=== PATIENT | female | born 1990 | race African-American/Black ===

== ENCOUNTER 2019-09-13 11:08 | Emergency (ER) | payer OTHER ==
[2019-09-13 11:22] VITALS: TEMP 98.1; BMI 27.4
--- NOTE | 2019-09-13 12:27 | PDOC ---
Documentation entered by Aurora Garcia SCRIBE, acting as scribe for Caio Ryan MD. Caio Ryan MD: This documentation has been prepared by the Jose contreras Ana, SCRIBE, under my direction and personally reviewed by me in its entirety. I confirm that the documentation accurately reflects all work, treatment, procedures, and medical decision making performed by me. Attending Attestation - Resident Resident Name: PughKarthikeyan - ED Attending Attestation I have performed the following: I have examined & evaluated the patient, The case was reviewed & discussed with the resident, I agree w/resident's findings & plan, Exceptions are as noted - HPI HPI: 09/13/19 11:37 Patient is a 29 year old 30 weeks female () with no significant past medical history who presents to the ED with increasing fatigue x7 days. Patient also endorses occasional palpitations and SOB when standing and upon exertion. Patient disclosed she has been experiencing these symptoms throughout her but that they have been getting worse. Pt denies any symptoms at rest. Denies any recent leg swelling or calf pain. Patient denies: any recent travel, long car rides, any headaches, dizziness, any vision changes, abdominal pain, back pain, or any other related symptoms. Allergies: NKDA PCP: Dr. Bernardo Montesinos - Physicial Exam PE: 09/13/19 11:53 See resident exam - Medical Decision Making 09/13/19 12:39 29 F with BEAULIEU and palpitations. Vitals normal in ED. EKG unremarkable. Pt is very well appearing. Suspect normal symptoms of . No evidence of DVT on exam. Low suspicion for PE. - Labs, trop, BNP - CXR - IVF 09/13/19 14:04 Labs wnl CXR clear POC cardiac US unremarkable Pt ambulated in ED, with normal sats. Pt is well appearing, with normal vitals. Clinically stable for DC at this time. I discussed the physical exam findings, ancillary test results and final diagnoses with the patient. I answered all of the patient's questions. The patient was satisfied with the care received and felt comfortable with the discharge plan and treatment plan. The patient agrees to follow up with the primary care physician within 24-72 hours. Please note this patient was evaluated during the COVID-19 crisis with the presidential Dunn Act Declaration and the [place] governor executive order number 202. He/she was evaluated and clinical decisions were made relative to healthcare system resources as well as clinical picture during a pandemic crisis situation. Discharge - Discharge Information Problems reviewed: Yes Clinical Impression/Diagnosis: Fatigue, Tachycardia with heart rate 100-120 beats per minute Condition: Stable Disposition: HOME - Follow up/Referral Referrals: [facility] [place] [facility] [place] [Provider Group] Bernardo Montesinos MD [Primary Care Provider] - - Patient Discharge Instructions Additional Instructions: Please make a follow up appointment with your primary care physician and your OB (referrals provided here). If you experience any new, worsening, or concerning symptoms, including chest pain, shortness of breath, dizziness, leg swelling, or any other concerns, please return to the emergency department. - Post Discharge Activity
--- NOTE | 2019-09-13 12:28 | PDOC ---
History of Present Illness - General Chief Complaint: Weakness Stated Complaint: 30 WK PREG / SOB Time Seen by Provider: 09/13/19 11:27 - History of Present Illness Initial Comments: Joseph Garcia is a 29 y/o female with no reported PMH @ 30 weeks presenting today with generalized weakness, shortness of breath, heart palpitations. Reports that over the past couple of weeks she has felt fatigue, generally weak, and short of breath, but this morning reports that her shortness of breath feels different. States that her shortness of breath is worse on exertion and when standing. No chest pain. No pleuritic chest pain. No dizziness/headache. No LOC. No nausea/vomiting. Reports abdominal cramping that is the same that has occurred throughout her . No leg swelling. No recent travel. No smoking history. No fever/chills. Past History - Medical History Allergies/Adverse Reactions: Allergies Allergy/AdvReac Type Severity Reaction Status Date / Time No Known Allergies Allergy Verified 09/13/19 11:14 Home Medications: Ambulatory Orders NK [No Known Home Medication] 09/13/19 COPD: No - Psycho-Social/Smoking History Smoking History: Never smoked Information on smoking cessation initiated: Yes - Substance Abuse Hx (Audit-C & DAST Scrn) How often the patient has a drink containing alcohol: Never Score: In Men: 4 or > Positive; In Women: 3 or > Positive: 0 Screen Result (Pos requires Nsg. Audit-10AR): Negative In the last yr the pt used illegal drug/Rx for NonMed reason: No Score: Yes response is considered Positive: 0 Screen Result (Positive result requires Nsg. DAST-10): Negative Review of Systems - Review of Systems Comments:: GENERAL/CONSTITUTIONAL: No fever or chills. Reports generalized weakness. HEAD, EYES, EARS, NOSE AND THROAT: No change in vision. No change in hearing. No sore throat._ CARDIOVASCULAR: No chest pain. Reports shortness of breath. RESPIRATORY: Denies cough, hemoptysis_ GASTROINTESTINAL: No nausea, vomiting, diarrhea or constipation._ GENITOURINARY: No dysuria, frequency, or change in urination._ MUSCULOSKELETAL: No joint or muscle swelling or pain. No neck or back pain._ SKIN: No rash_ NEUROLOGIC: No headache, vertigo, loss of consciousness, or change in strength/sensation._ ENDOCRINE: No increased thirst. No abnormal weight change_ HEMATOLOGIC/LYMPHATIC: No anemia, easy bleeding, or history of blood clots._ ALLERGIC/IMMUNOLOGIC: No hives or skin allergy._ *Physical Exam - Vital Signs Last Vital Signs Temp Pulse Resp BP Pulse Ox 98.1 F 105 H 19 102/67 99 09/13/19 11:12 09/13/19 11:12 09/13/19 11:12 09/13/19 11:12 09/13/19 11:12 - Physical Exam GENERAL: Awake, alert, and oriented to person/place/time, in no acute distress. Well appearing. HEAD: No signs of trauma, normocephalic, atraumatic. EYES: PERRLA, EOMI, sclera anicteric, conjunctiva clear_ ENT: Hearing grossly normal, nares patent, oropharynx clear without exudates. No uvular deviation. Moist mucosa_ NECK: Normal ROM, supple, no lymphadenopathy, JVD, or masses_ LUNGS: No distress, speaks in full sentences, clear to auscultation bilaterally _ HEART: Regular rate and rhythm, normal S1 and S2, no murmurs appreciated, peripheral pulses normal and equal bilaterally._ ABDOMEN: Soft, gravid, nontender, normoactive bowel sounds. No guarding, no rebound. No masses_ EXTREMITIES: Normal inspection, Normal range of motion, no edema. No clubbing or cyanosis_ NEUROLOGICAL: Cranial nerves II through XII grossly intact. Normal speech, normal gait, no focal sensorimotor deficits _ SKIN: Warm, Dry, normal turgor, no rashes or lesions noted_ ED Treatment Course - LABORATORY CBC & Chemistry Diagram: 09/13/19 12:36 09/13/19 12:36 Medical Decision Making - Medical Decision Making 29F @ 30 weeks presenting today with generalized fatigue, tachycardia, shortness of breath. No infections symptoms. No leg swelling. -labs -ekg -cxr -coags -BNP -pocus -ua, ucx 09/13/19 12:27 EKG shows 87 bpm, NSR, no axis deviation, UT 140, QTc 404, no ST elevation/depression. 09/13/19 14:04 POCUS echo shows no signs of pericardial effusion or cardiomyopathy. FHR 160s. CXR negative for acute chest pathology. Labs reviewed. Laboratory Last Values WBC 12.3 K/mm3 (4.0-10.0) H 09/13/19 12:36 RBC 4.10 M/mm3 (3.60-5.2) 09/13/19 12:36 Hgb 10.5 GM/dL (10.7-15.3) L 09/13/19 12:36 Hct 33.0 % (32.4-45.2) 09/13/19 12:36 MCV 80.4 fl (80-96) 09/13/19 12:36 MCH 25.7 pg (25.7-33.7) 09/13/19 12:36 MCHC 31.9 g/dl (32.0-36.0) L 09/13/19 12:36 RDW 14.2 % (11.6-15.6) 09/13/19 12:36 Plt Count 331 K/MM3 (134-434) 09/13/19 12:36 MPV 8.5 fl (7.5-11.1) 09/13/19 12:36 Absolute Neuts (auto) 9.8 K/mm3 (1.5-8.0) H 09/13/19 12:36 Neutrophils % 79.8 % (42.8-82.8) 09/13/19 12:36 Lymphocytes % 11.1 % (8-40) 09/13/19 12:36 Monocytes % 8.2 % (3.8-10.2) 09/13/19 12:36 Eosinophils % 0.5 % (0-4.5) 09/13/19 12:36 Basophils % 0.4 % (0-2.0) 09/13/19 12:36 Nucleated RBC % 0 % (0-0) 09/13/19 12:36 PT with INR 11.00 SEC (9.7-13.0) 09/13/19 12:36 INR 0.93 (0.83-1.09) 09/13/19 12:36 PTT (Actin FS) 25.8 SECONDS (25.2-36.5) 09/13/19 12:36 Sodium 137 mmol/L (136-145) 09/13/19 12:36 Potassium 4.0 mmol/L (3.5-5.1) 09/13/19 12:36 Chloride 106 mmol/L (98-107) 09/13/19 12:36 Carbon Dioxide 25 mmol/L (21-32) 09/13/19 12:36 Anion Gap 6 MMOL/L (8-16) L 09/13/19 12:36 BUN 7.5 mg/dL (7-18) 09/13/19 12:36 Creatinine 0.6 mg/dL (0.55-1.3) 09/13/19 12:36 Est GFR (CKD-EPI)AfAm 142.76 09/13/19 12:36 Est GFR (CKD-EPI)NonAf 123.17 09/13/19 12:36 POC Glucometer 96 UNITS (80-120) 09/13/19 12:43 Random Glucose 97 mg/dL (74-106) 09/13/19 12:36 Calcium 9.3 mg/dL (8.5-10.1) 09/13/19 12:36 Total Bilirubin 0.4 mg/dL (0.2-1) 09/13/19 12:36 AST 10 U/L (15-37) L 09/13/19 12:36 ALT 13 U/L (13-61) 09/13/19 12:36 Alkaline Phosphatase 151 U/L (45-117) H 09/13/19 12:36 Creatine Kinase 52 U/L (26-192) 09/13/19 12:36 Troponin I < 0.02 ng/ml (0.00-0.05) 09/13/19 12:36 B-Natriuretic Peptide 8.6 pg/ml (5-125) 09/13/19 12:36 Total Protein 7.1 g/dl (6.4-8.2) 09/13/19 12:36 Albumin 3.0 g/dl (3.4-5.0) L 09/13/19 12:36 Urine Color Yellow 09/13/19 13:25 Urine Appearance Clear 09/13/19 13:25 Urine pH 6.5 (5.0-8.0) 09/13/19 13:25 Ur Specific [place] 1.024 (1.010-1.035) 09/13/19 13:25 Urine Protein Trace (NEGATIVE) 09/13/19 13:25 Urine Glucose (UA) Negative (NEGATIVE) 09/13/19 13:25 Urine Ketones Trace (NEGATIVE) H 07/22/20 13:25 Urine Blood Negative (NEGATIVE) 09/13/19 13:25 Urine Nitrite Negative (NEGATIVE) 09/13/19 13:25 Urine Bilirubin Negative (NEGATIVE) 09/13/19 13:25 Urine Urobilinogen 1.0 mg/dL (0.2-1.0) 09/13/19 13:25 Ur Leukocyte Esterase Trace (NEGATIVE) 09/13/19 13:25 Urine WBC (Auto) 18 /uL (0-25.8) 09/13/19 13:25 Urine RBC (Auto) 14 /uL (0-23.9) 09/13/19 13:25 Urine Casts (Auto) 3 /uL (0-3.1) 09/13/19 13:25 U Epithel Cells (Auto) 22 /uL (0-25.1) 09/13/19 13:25 Urine Bacteria (Auto) 310 /uL (0-1359) 09/13/19 13:25 09/13/19 14:06 Pt reassessed. Reports improvement. Plan to d/c home with OB f/u. All questions answered. Return precautions given. Pt verbalized understanding and agreement with plan. Discharge - Discharge Information Problems reviewed: Yes Clinical Impression/Diagnosis: Fatigue, Tachycardia with heart rate 100-120 beats per minute Condition: Stable Disposition: HOME - Admission No - Follow up/Referral Referrals: [facility] [place] [facility] [place] [Provider Group] Bernardo Montesinos MD [Primary Care Provider] - - Patient Discharge Instructions Additional Instructions: Please make a follow up appointment with your primary care physician and your OB (referrals provided here). If you experience any new, worsening, or concerning symptoms, including chest pain, shortness of breath, dizziness, leg swelling, or any other concerns, please return to the emergency department. - Post Discharge Activity
[2019-09-13] MEDS ORDERED: SODIUM CHLORIDE 1,000 ML IV STA (12:43)
[2019-09-13 12:51] LABS: BASO % 0.4 % (0-2.0); EOS % 0.5 % (0-4.5); HEMOGLOBIN 10.5 GM/dL (10.7-15.3); LYMPH % 11.1 % (8-40); MCH 25.7 pg (25.7-33.7); MCHC 31.9 g/dl (32.0-36.0); MEAN CELL VOLUME 80.4 fl (80-96); MEAN PLT VOLUME 8.5 fl (7.5-11.1); MONO % 8.2 % (3.8-10.2); NEUT % 79.8 % (42.8-82.8); PLATELET COUNT 331 K/MM3 (134-434); RDW 14.2 % (11.6-15.6); WHITE BLOOD COUNT 12.3 K/mm3 (4.0-10.0)
[2019-09-13 12:58] LABS: INR 0.93 (0.83-1.09)
[2019-09-13 13:01] LABS: ACTIVATED PTT 25.8 SECONDS (25.2-36.5)
[2019-09-13] MEDS ORDERED: FAMOTIDINE 10 MG TABLET PO ONE (13:13)
[2019-09-13] MEDS ORDERED: MAG HYDROX/AL HYDROX/SIMETH -MYLANTA- ORAL SUSPENSION PO ONE (13:13)
[2019-09-13] MEDS ORDERED: FAMOTIDINE 10 MG TABLET ONE (13:16)
[2019-09-13] MEDS ORDERED: MAG HYDROX/AL HYDROX/SIMETH 30 ML UNIT-DOSE CUP ONE (13:17)
[2019-09-13 13:34] LABS: ALK PHOS 151 U/L (45-117); ANION GAP 6 MMOL/L (8-16); BILIRUBIN,TOTAL 0.4 mg/dL (0.2-1); BLOOD UREA NITROGEN 7.5 mg/dL (7-18); CALCIUM 9.3 mg/dL (8.5-10.1); CHLORIDE 106 mmol/L (98-107); CO2 25 mmol/L (21-32); CREATININE 0.6 mg/dL (0.55-1.3); GLUCOSE,RANDOM 97 mg/dL (74-106); N-TERMINAL BNP 8.6 pg/ml (5-125); SGOT/AST 10 U/L (15-37); SGPT/ALT 13 U/L (13-61); SODIUM 137 mmol/L (136-145); TOT PROT 7.1 g/dl (6.4-8.2)
[2019-09-13 13:35] LABS: EPI CELLS 22 /uL (0-25.1); HYALINE CASTS 3 /uL (0-3.1); PH,URINE 6.5 (5.0-8.0); URINE APPEARANCE CLEAR; URINE BACTERIA 310 /uL (0-1359); URINE BILIRUBIN NEGATIVE (NEGATIVE); URINE COLOR YELLOW; URINE GLUCOSE (UA) NEGATIVE (NEGATIVE); URINE KETONE TRACE (NEGATIVE); URINE LEUK ESTERASE TRACE (NEGATIVE); URINE NITRITE NEGATIVE (NEGATIVE); URINE PROTEIN TRACE (NEGATIVE); URINE RBC 14 /uL (0-23.9); URINE WBC 18 /uL (0-25.8)
[2019-09-13 14:33] VITALS: BP 120/74; PULSE 74
--- NOTE | 2019-09-14 12:11 | EKG ---
Test Reason : Blood Pressure : / mmHG Vent. Rate : 087 BPM Atrial Rate : 087 BPM P-R Int : 140 ms QRS Dur : 062 ms QT Int : 336 ms P-R-T Axes : 050 047 017 degrees QTc Int : 404 ms NORMAL SINUS RHYTHM NORMAL ECG NO PREVIOUS ECGS AVAILABLE Confirmed by JOZEF CASTILLO MD ([id number]) on 09/14/2019 12:10:56 PM Referred By: Confirmed By:JOZEF CASTILLO MD
== END 2019-09-13 14:33 | disposition home or self-care (01) ==
LOC: JER 11:08
PROC: 3E0337Z Introduction of Electrolytic and Water Balance Substance into Peripheral Vein, Percutaneous Approach (ICD-10-PCS; principal; 2019-09-13)
DX: R53.83 Other fatigue (principal); R00.0 Tachycardia, unspecified; Z3A.30 30 weeks gestation of pregnancy
CPT/HCPCS: 36415; 71045-TC-FY; 76815; 80053; 81003; 82550; 82962; 83880; 84484; 85025; 85610; 85730; 93005; 93010; 99285-25

== ENCOUNTER 2019-11-18 00:15 | Inpatient (IN) | payer OTHER ==
[2019-11-18] MEDS ORDERED: ELECTROLYTE-148 SOLN 1,000 ML IV SCH (03:00)
[2019-11-18] MEDS ORDERED: BUTORPHANOL TARTRATE 1 MG/ML VIAL IVPB ONE (03:03)
[2019-11-18] MEDS ORDERED: BUTORPHANOL TARTRATE 2 MG/ML VIAL IVPB ONE (03:03)
--- NOTE | 2019-11-18 03:03 | HP ---
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: Alzheimer's, CVA, Dementia, Migraine, Multiple Sclerosis, Peripheral Neuropathy, Parkinson's, Seizure, Syncope, TIA, Vertigo, Other Cardiovascular: No: AFIB, Aneurysm, Aortic Insufficiency, Aortic Stenosis, CAD, CHF, Deep Vein Thrombosis, HTN, Hyperlipdemia, CT, Mitral Insufficiency, Mitral Stenosis, Murmur, Pulmonary Hypertension, Other Pulmonary: No: Asthma, Bronchitis, Cancer, COPD, O2 Dependent, Pneumonia, Previously Intubated, Pulmonary Embolus, Pulmonary Fibrosis, Sleep Apnea, Other Gastrointestinal: No: Ascites, Cancer, Constipation, Crohn's Disease, Diverticulitis, Diverticulosis, Esophageal Varices, Gastritis, GERD, GI Bleed, Hemorrhoids, Hiatal Hernia, Inflamatory Bowel Disease, Irritable Bowel Disease, Pancreatitis, Peptic Ulcer Disease, Ulcerative Colitis, Other Hepatobiliary: No: Cirrhosis, Cholelithiasis, Cholecystitis, Choledocholithiasis, Hepatitis A, Hepatitis B, Hepatitis C, Other Renal/: No: Renal Failure, Renal Inusuff, BPH, Cancer, Hematuria, Hemodialysis, Neurogenic Bladder, Renal Calculi, UTI, Other Reproductive: No: Ectopic , Endometriosis, Fibroids, PID, Polycystic Ovary Syndrome, Postmenopausal, Other ...: 2 ...Para: 0 ...Term: 0 ...: 0 ...Spon : 0 ...Induced : 0 ...Living Children: 0 ...LMP: 02/09/19 ... Weeks Gestation by Dates: 40.1 ...EDC by Dates: 11/16/19 ...EDC by Sono: 11/10/19 Heme/Onc: No: Anemia, B12 Deficiency, Bleeding Disorder, Cancer, Current Chemotherapy, Current Radiation Therapy, Hemochromatosis, Hypercoaguable State, Myeloproliferative Synd, Sickle Cell Disease, Sickle Cell Trait, Thrombocytopenia, Other Infectious Disease: No: AIDS, C-Diff, Herpes Zoster, HIV, MRSA, STD's, Tuberculosis, VREF, Other Psych: No: Addictions, Anxiety, Bipolar, Depression, Panic, Psychosis, S chizophrenia, Other Musculoskeletal: No: Bursitis, Chronic low back pain, Hemiparesis, Hemiplegia, Osteoarthritis, Paraplegia, Other Rheumatology: No: Fibromyalgia, Gout, Lupus, Rheumatoid Arthritis, Sarcoidosis, Vasculitis, Other ENT: No: Allergic Rhinitis, Sinusitis, Other Endocrine: No: Garland's Disease, [place]'s Disease, Diabetes Insipidus, Diabetes Mellitus, Hyperparathyroidism, Hyperthyroidism, Hypothyroidism, Osteopenia, SIADH, Other Dermatology: No: Basal Cell, Cellulitis, Eczema, Melanoma, Psoriasis, Squamous Cell, Other - Past Surgical History Past Surgical History: Yes: None Hx Myomectomy: No Hx Transabdominal Cerclage: No - Smoking History Smoking history: Never smoked - Alcohol/Substance Use Hx Alcohol Use: No History of Substance Use: reports: None - Social History History of Recent Travel: No Home Medications - Allergies Allergies/Adverse Reactions: Allergies Allergy/AdvReac Type Severity Reaction Status Date / Time No Known Allergies Allergy Verified 09/13/19 11:14 - Home Medications Home Medications: Ambulatory Orders NK [No Known Home Medication] 09/13/19 Family Medical History Family History: Unremarkable Review of Systems - Review of Systems Constitutional: reports: No Symptoms Eyes: reports: No Symptoms HENT: reports: No Symptoms Neck: reports: No Symptoms Cardiovascular: reports: No Symptoms Respiratory: reports: No Symptoms Gastrointestinal: reports: No Symptoms Genitourinary: reports: No Symptoms Breasts: reports: No Symptoms Reported Musculoskeletal: reports: No Symptoms Integumentary: reports: No Symptoms Neurological: reports: No Symptoms Endocrine: reports: No Symptoms Hematology/Lymphatic: reports: No Symptoms Psychiatric: reports: No Symptoms Physical Exam - Maternity Vital Signs: Vital Signs Temperature 98.3 F 11/18/19 00:15 Pulse Rate 114 H 11/18/19 00:15 Respiratory Rate 18 11/18/19 00:15 Blood Pressure 101/67 11/18/19 00:15 O2 Sat by Pulse Oximetry (%) Constitutional: Yes: Well Nourished HENT: Yes: Nasal Congestion Neck: Yes: Supple Cardiovascular: Yes: Regular Rate and Rhythm Breast(s): Yes: Other - Abdominal Exam/OB Number of Fetuses: Single Presentation: Vertex Contractions: Yes Regularity: Regular Intensity: Moderate Monitor Mode: External Heart Rate (range): 145 Category: I Accelerations: Uniform Decelerations: None - Vaginal Exam/OB Vaginal Bleeding: No Speculum Exam: Yes (no lesions) Dilatation (cm): 4 Effacement (%): 60 Amniotic Membrane Status: Intact Presentation: Vertex/Position Station: -3 - Physical Exam Musculoskeletal: Yes: WNL Extremities: Yes: WNL Edema: Yes Edema: LLE: Trace, RLE: Trace Integumentary: Yes: WNL Deep Tendon Reflex Grade: Normal +2 ...Motor Strength: WNL Psychiatric: Yes: Alert, Oriented Imaging - Results Ultrasound: Report Reviewed Assessment/Plan 20 y/o P0 @ 40.2wks, active labor, FHT cat I, desiring IV pain control, EFW as of sono today 4Kg, HSV on valtrex and no prodromal symptoms and normal SSE. -admit -IV stadol -Expectant management
[2019-11-18 03:55] LABS: BASO % 0.5 % (0-2.0); EOS % 0.2 % (0-4.5); LYMPH % 9.9 % (8-40); MCH 25.3 pg (25.7-33.7); MCHC 32.3 g/dl (32.0-36.0); MEAN CELL VOLUME 78.4 fl (80-96); MEAN PLT VOLUME 9.2 fl (7.5-11.1); MONO % 6.4 % (3.8-10.2); PLATELET COUNT 274 K/MM3 (134-434); RBC 4.34 M/mm3 (3.60-5.2); WHITE BLOOD COUNT 11.6 K/mm3 (4.0-10.0)
[2019-11-18] MEDS ORDERED: BUTORPHANOL TARTRATE 2 MG/ML VIAL ONE (03:57)
[2019-11-18 04:01] LABS: INR 0.91 (0.83-1.09); PROTHROMBIN TIME (PATIENT) 10.7 SEC (9.7-13.0)
[2019-11-18 04:04] LABS: ACTIVATED PTT 26.4 SECONDS (25.2-36.5)
[2019-11-18 04:18] LABS: BLOOD UREA NITROGEN 8.9 mg/dL (7-18); CALCIUM 8.5 mg/dL (8.5-10.1); CREATININE 0.6 mg/dL (0.55-1.3)
[2019-11-18 04:29] LABS: POTASSIUM 6.4 mmol/L (3.5-5.1)
[2019-11-18 05:22] VITALS: BMI 29.3
--- NOTE | 2019-11-18 07:30 | PN ---
Ante-Partal Exam - Subjective Subjective: Patient would like epidural Vital Signs: Vital Signs Temperature 98.4 F 11/18/19 04:00 Pulse Rate 112 H 11/18/19 07:00 Respiratory Rate 20 11/18/19 07:00 Blood Pressure 118/72 11/18/19 07:00 O2 Sat by Pulse Oximetry (%) Bleeding: No Headache: No Visual changes: No Right upper quadrant pain: No - Contractions Contractions: Yes Regularity: Regular Intensity: Moderate Monitor Mode: External - Exam during Labor Heart Rate: 140 Variability: Minimal, Moderate Category: I Monitor Accelerations: Present Monitor Decelerations: None Exam: Vaginal Dilatation (cm): 6 Effacement (%): 70 Amniotic Membrane Status: Bulging Presentation: Vertex Station: -3 - Assessment/Plan Assessment/Plan: 29 y/o P0 @ 40.2wks, active labor, requesting epidural -Epidural is Ok -Post-epidural examination and possible AROM
[2019-11-18] MEDS ORDERED: FENTANYL/BUPIVACAINE/NS/PF - PCEA - 50 ML DISP.SYRIN EP ONE ×2 (07:58→12:50)
[2019-11-18] MEDS ORDERED: PCA PUMP NR ONE (07:58)
[2019-11-18] MEDS ORDERED: NALOXONE HCL 0.4 MG/ML VIAL IVPUSH PRN (08:43)
[2019-11-18] MEDS ORDERED: FENTANYL/BUPIVACAINE/NS/PF - PCEA - 50 ML DISP.SYRIN EP SCH (08:45)
--- NOTE | 2019-11-18 10:02 | PN ---
Ante-Partal Exam - Subjective Subjective: Patient is doing well following epidural Vital Signs: Vital Signs Temperature 98.4 F 11/18/19 04:00 Pulse Rate 83 11/18/19 09:00 Respiratory Rate 18 11/18/19 09:00 Blood Pressure 125/76 11/18/19 09:00 O2 Sat by Pulse Oximetry (%) 98 11/18/19 09:00 Bleeding: No Headache: No Visual changes: No Right upper quadrant pain: No - Contractions Contractions: Yes Regularity: Regular Intensity: Moderate Monitor Mode: External - Exam during Labor Heart Rate: 140 Variability: Minimal, Moderate Category: I Monitor Accelerations: Present Monitor Decelerations: None Dilatation (cm): 8 Effacement (%): 90 Amniotic Membrane Status: Ruptured Amniotic Fluid: Clear Presentation: Vertex Station: -3 - Assessment/Plan Assessment/Plan: 29 y/o P0 @ 40.2wks, S/P epidural, reassuring status, S/P AROM -Expectant management
--- NOTE | 2019-11-18 12:50 | PN ---
Ante-Partal Exam - Subjective Subjective: Patient comfortable with epidural and re-evaluated Vital Signs: Vital Signs Temperature 98.5 F 11/18/19 11:00 Pulse Rate 89 11/18/19 12:00 Respiratory Rate 18 11/18/19 12:00 Blood Pressure 127/83 11/18/19 12:00 O2 Sat by Pulse Oximetry (%) 100 11/18/19 12:00 Bleeding: No Headache: No Visual changes: No Right upper quadrant pain: No - Contractions Contractions: Yes Regularity: Regular Intensity: Unaware Monitor Mode: External - Exam during Labor Heart Rate: 140 Variability: Minimal, Moderate Category: I Monitor Accelerations: Present Monitor Decelerations: None Exam: Vaginal Dilatation (cm): 8 Effacement (%): 90 Amniotic Membrane Status: Ruptured Amniotic Fluid: Clear Presentation: Vertex Station: -3 - Assessment/Plan Assessment/Plan: 29 y/o active labor @ 40.2wk, FHT reassuring, S/P epidural and AROM, no cervical change, contraction adequately -Expectant management
--- NOTE | 2019-11-18 15:35 | PN ---
Ante-Partal Exam - Subjective Subjective: Patient is comfortable with epidural Vital Signs: Vital Signs Temperature 99.2 F 11/18/19 15:00 Pulse Rate 119 H 11/18/19 14:45 Respiratory Rate 18 11/18/19 14:45 Blood Pressure 109/62 11/18/19 14:45 O2 Sat by Pulse Oximetry (%) 99 11/18/19 14:45 Bleeding: No Headache: No Visual changes: No Right upper quadrant pain: No - Contractions Contractions: Yes Regularity: Regular Intensity: Unaware Monitor Mode: External - Exam during Labor Heart Rate: 155 Variability: Minimal, Moderate Category: I Monitor Accelerations: Present Monitor Decelerations: None Exam: Vaginal Dilatation (cm): 8 Effacement (%): 90 Amniotic Membrane Status: Ruptured Amniotic Fluid: Clear Presentation: Vertex Station: -3 Remarks: Asynclitic - Assessment/Plan Assessment/Plan: 29 y/o P0 @ 40.2wks, active labor, reassuring FHT, no cervical change for 5 hours despite adequate contractions, S/P AROM and epidural. Patient counseled regarding surgical delivery including its respective risks and complications. Patient and partner desires to wait for 1-2 more hours. Protracted labor explained and possible risks and complications of additional expectant management discussed. They expressed understanding. -Re-evaluate in 1-2 hours -Continue expectant management
[2019-11-18] MEDS ORDERED: ceFAZolin 2 GRAM PREMIX BAG IVPB ONE (17:04)
--- NOTE | 2019-11-18 17:04 | PN ---
Ante-Partal Exam - Subjective Subjective: Patient comfortable with epidural Vital Signs: Vital Signs Temperature 99.2 F 11/18/19 15:00 Pulse Rate 109 H 11/18/19 15:15 Respiratory Rate 11/18/19 15:15 Blood Pressure 119/85 11/18/19 15:15 O2 Sat by Pulse Oximetry (%) 100 11/18/19 15:15 Bleeding: No Headache: No Visual changes: No Right upper quadrant pain: No - Contractions Contractions: Yes Regularity: Regular Intensity: Unaware Monitor Mode: External - Exam during Labor Heart Rate: 155 Variability: Minimal, Moderate Category: I Monitor Accelerations: Present Monitor Decelerations: None Exam: Vaginal Dilatation (cm): 8 Effacement (%): 80 Amniotic Membrane Status: Ruptured Amniotic Fluid: Clear Station: -3 Remarks: asynclitic - Assessment/Plan Assessment/Plan: 29 y/o P0 @ 40.2wks, arrest of dilatation, FHT is reassuring, S/P AROM and epidural, mild maternal tachycardia. Patient was counseled regarding CD and its respective risks and complications. Informed consent obtained. Electric Locomotive Firer/Fireman called and informed. -Pre-op Abx -Prompt surgical delivery
[2019-11-18] MEDS ORDERED: AZITHROMYCIN IVPB 500 MG/250 ML BAG IVPB ONE (17:05)
[2019-11-18] MEDS ORDERED: LIDO 2%/EPI 1:200000 PRESRVFRE (20 ML SDVIAL) ONE (17:10)
--- NOTE | 2019-11-18 17:11 | OP ---
Operative Note - Note: Operative Date: 11/18/19 (#[id number]) Pre-Operative Diagnosis: 29 y/o P0 @ 40.2wks, arrest of dilatation Operation: PLTCS Findings: see dictation Post-Operative Diagnosis: Same as Pre-op Surgeon: Prashant Gould Executive Advisor: Naresh Dos Santos Anesthesia: Spinal Estimated Blood Loss (mls): 700 Drains, Volume Out (mls): 100 Fluid Volume Replaced (mls): 1,000 Operative Report Dictated: Yes
[2019-11-18] MEDS ORDERED: MIDAZOLAM HCL 2 MG/2 ML SINGLE DOSE VIAL ONE (17:59)
[2019-11-18] MEDS ORDERED: KETOROLAC TROMETHAMINE 30 MG/1 ML VIAL ONE (18:03)
[2019-11-18] MEDS ORDERED: OXYTOCIN 10 UNITS/ML VIAL ONE (18:14)
[2019-11-18] MEDS ORDERED: IBUPROFEN 600 MG TABLET (FP) PO PRN (18:34)
[2019-11-18] MEDS ORDERED: SIMETHICONE 80 MG TAB.CHEW (FP) PO PRN (18:34)
[2019-11-18] MEDS ORDERED: ACETAMINOPHEN INJECTION 100 ML IVPB ONE (18:41)
[2019-11-18] MEDS ORDERED: OXYTOCIN 20 UNITS in 0.9% NS 20 UNIT/1,000 ML INFUS.BAG IV SCH (18:45)
[2019-11-18] MEDS ORDERED: ONDANSETRON 4 MG/2 ML VIAL IVPUSH PRN (18:55)
[2019-11-18] MEDS ORDERED: ACETAMINOPHEN 1000 MG/100 ML VIAL (NON FORMULARY) IVPB ONE (18:57)
--- NOTE | 2019-11-18 20:47 | PN ---
Progress Note (short form) - Note Progress Note: Pt is couple of hours after C/section. Stable, no pain. Called to the bedside by RN because of the dressing getting blood stained. Examined. Dressing removed. Fairly soaked. Observed for a while. Minimal, slow ooze from 2 points. Excellent plastic closure otherwise. Incision dried up, extra steri strips applied. Pressure dressing placed and held with binder. Tight. Pt is OK, stable.
[2019-11-19] MEDS: IBUPROFEN 800 MG/8 ML IJ IVPB PRN ×2 (06:10→15:39)
[2019-11-19] MEDS: ACETAMINOPHEN 325 MG TABLET (FP) PO PRN ×2 (08:48→18:32)
[2019-11-19 08:52] LABS: BASO % 0.2 % (0-2.0); EOS % 0.5 % (0-4.5); HEMATOCRIT 27.5 % (32.4-45.2); HEMOGLOBIN 8.8 GM/dL (10.7-15.3); LYMPH % 5.9 % (8-40); MCH 25.3 pg (25.7-33.7); MCHC 31.9 g/dl (32.0-36.0); MEAN CELL VOLUME 79.3 fl (80-96); MEAN PLT VOLUME 8.6 fl (7.5-11.1); NEUT % 86.4 % (42.8-82.8); PLATELET COUNT 227 K/MM3 (134-434); RBC 3.47 M/mm3 (3.60-5.2); RDW 19.5 % (11.6-15.6); WHITE BLOOD COUNT 17.6 K/mm3 (4.0-10.0)
--- NOTE | 2019-11-19 09:28 | PN ---
Post Progress Note - Subjective Subjective: Wade is out, not yet ambulating, tolerating PO, lochia decreased. Desiring infant's circumcision Post Day: 1 Type of Delivery: Primary C/S Vital Signs: Vital Signs Temperature 98.5 F 11/19/19 06:00 Pulse Rate 107 H 11/19/19 06:00 Respiratory Rate 20 11/19/19 09:00 Blood Pressure 105/61 11/19/19 06:00 O2 Sat by Pulse Oximetry (%) 100 11/18/19 20:22 Breast Exam: Yes: Other Uterus: Yes: Fundus Firm Incision: Yes: Dressing dry and intact, Sutures intact Abdomen/GI: Yes: Abdomen soft Lochia, amount: Moderate Extremities: Yes: Calves non-tender Perineum: Yes: Intact Activity: Ambulating - Labs Labs: CBC WBC 17.6 K/mm3 (4.0-10.0) H 11/19/19 08:12 RBC 3.47 M/mm3 (3.60-5.2) L 11/19/19 08:12 Hgb 8.8 GM/dL (10.7-15.3) L 11/19/19 08:12 Hct 27.5 % (32.4-45.2) L D 11/19/19 08:12 MCV 79.3 fl (80-96) L 11/19/19 08:12 MCH 25.3 pg (25.7-33.7) L 11/19/19 08:12 MCHC 31.9 g/dl (32.0-36.0) L 11/19/19 08:12 RDW 19.5 % (11.6-15.6) H 11/19/19 08:12 Plt Count 227 K/MM3 (134-434) 11/19/19 08:12 MPV 8.6 fl (7.5-11.1) 11/19/19 08:12 Absolute Neuts (auto) 15.2 K/mm3 (1.5-8.0) H 11/19/19 08:12 Neutrophils % 86.4 % (42.8-82.8) H 11/19/19 08:12 Lymphocytes % 5.9 % (8-40) L D 11/19/19 08:12 Monocytes % 7.0 % (3.8-10.2) 11/19/19 08:12 Eosinophils % 0.5 % (0-4.5) D 11/19/19 08:12 Basophils % 0.2 % (0-2.0) 11/19/19 08:12 Nucleated RBC % 0 % (0-0) 11/19/19 08:12 Assessment/Plan POD # 1 in stable condition, mild anemia and asymptomatic, desiring circumcision -Post-op care -Encourage ambulation -Circumcision once clearance by peds
[2019-11-19] MEDS: FERROUS SO4 325 MG TABLET (FP) PO SCH (10:35)
[2019-11-19] MEDS: oxyCODONE HCL 5 MG TABLET PO PRN (18:32)
[2019-11-19] MEDS ORDERED: BISACODYL 10 MG SUPP.RECT RC PRN (18:35)
[2019-11-20] MEDS: ACETAMINOPHEN 325 MG TABLET (FP) PO PRN (03:40)
[2019-11-20] MEDS: oxyCODONE HCL 5 MG TABLET PO PRN (03:41)
--- NOTE | 2019-11-20 08:04 | PN ---
Post Progress Note - Subjective Subjective: Not ambulating appropriately, feeling weak, voiding, tolerating PO, lochia decreased, desiring 's circumcision Post Day: 2 Type of Delivery: Primary C/S Vital Signs: Vital Signs Temperature 98.2 F 11/20/19 03:00 Pulse Rate 110 H 11/19/19 21:10 Respiratory Rate 11/19/19 21:10 Blood Pressure 120/84 11/19/19 21:10 O2 Sat by Pulse Oximetry (%) 100 11/18/19 20:22 Breast Exam: Yes: Other Uterus: Yes: Fundus Firm Incision: Yes: Sutures intact Abdomen/GI: Yes: Abdomen soft Lochia, amount: Small Extremities: Yes: Calves non-tender Perineum: Yes: Intact Activity: Ambulating (minimally) - Labs Labs: CBC WBC 17.6 K/mm3 (4.0-10.0) H 11/19/19 08:12 RBC 3.47 M/mm3 (3.60-5.2) L 11/19/19 08:12 Hgb 8.8 GM/dL (10.7-15.3) L 11/19/19 08:12 Hct 27.5 % (32.4-45.2) L D 11/19/19 08:12 MCV 79.3 fl (80-96) L 11/19/19 08:12 MCH 25.3 pg (25.7-33.7) L 11/19/19 08:12 MCHC 31.9 g/dl (32.0-36.0) L 11/19/19 08:12 RDW 19.5 % (11.6-15.6) H 11/19/19 08:12 Plt Count 227 K/MM3 (134-434) 11/19/19 08:12 MPV 8.6 fl (7.5-11.1) 11/19/19 08:12 Absolute Neuts (auto) 15.2 K/mm3 (1.5-8.0) H 11/19/19 08:12 Neutrophils % 86.4 % (42.8-82.8) H 11/19/19 08:12 Lymphocytes % 5.9 % (8-40) L D 11/19/19 08:12 Monocytes % 7.0 % (3.8-10.2) 11/19/19 08:12 Eosinophils % 0.5 % (0-4.5) D 11/19/19 08:12 Basophils % 0.2 % (0-2.0) 11/19/19 08:12 Nucleated RBC % 0 % (0-0) 11/19/19 08:12 Assessment/Plan POD # 2 in stable condition, mild anemia on PO iron, decreased ambulation due to feeling tired. -Repeat CBC -Continue PP/post-op care -Circumcision performed.
[2019-11-20] MEDS: FERROUS SO4 325 MG TABLET (FP) PO SCH (09:48)
[2019-11-20] MEDS ORDERED: DIPHTH,PERTUSS(ACELL),TET 0.5 ML DISP.SYRIN IM ONE (10:00)
[2019-11-20 10:01] LABS: BASO % 0.3 % (0-2.0); EOS % 0.5 % (0-4.5); HEMATOCRIT 30.6 % (32.4-45.2); HEMOGLOBIN 9.6 GM/dL (10.7-15.3); LYMPH % 10.6 % (8-40); MCH 24.8 pg (25.7-33.7); MCHC 31.3 g/dl (32.0-36.0); MEAN CELL VOLUME 79.2 fl (80-96); MEAN PLT VOLUME 8.7 fl (7.5-11.1); MONO % 3.7 % (3.8-10.2); NEUT % 84.9 % (42.8-82.8); PLATELET COUNT 275 K/MM3 (134-434); RBC 3.87 M/mm3 (3.60-5.2); RDW 20.1 % (11.6-15.6); WHITE BLOOD COUNT 17.5 K/mm3 (4.0-10.0)
--- NOTE | 2019-11-20 10:22 | OP ---
DATE OF OPERATION: 11/18/2019 PREOPERATIVE DIAGNOSIS: A 29-year-old para 0 at 40+ weeks gestation, active labor, arrest of dilation. POSTOPERATIVE DIAGNOSIS: A 29-year-old para 0 at 40+ weeks gestation, active labor, arrest of dilation. PROCEDURE: Primary low transverse section. SURGEON: Mark Vidal MD MILK VENDOR: RIVERA Torres COMPLICATIONS: None. ESTIMATED BLOOD LOSS: 700 mL. IV FLUIDS: One liter. URINE OUTPUT: Slightly blood-tinged urine 100 mL. FINDINGS: Normal anterior abdominal wall anatomy. The lower uterine segment was slightly effaced. in cephalic presentation OA, wedged deep within the pelvis. Uterus and bilateral tubes and ovaries consistent with normal anatomy. Bladder dome and rectus muscle fascial interface was noted to be intact and atraumatic. PROCEDURE: The patient was taken to the operating room where the anesthesia was found to be adequate. She was then prepped and draped in a normal sterile fashion. Urinary Wade catheter was placed atraumatically. Appropriate timeout took place. Pfannenstiel skin incision was made with a scalpel and carried to underlying fascia with the Bovie. The fascia was incised in the midline and incision extended laterally with sharp dissection. The underlying rectus muscles were dissected off bluntly and sharply. The rectus muscles were in the midline manually and the peritoneum was entered bluntly. Peritoneal incision was extended laterally with blunt dissection. Bladder blade placed and findings as previously mentioned. Low transverse incision in the lower uterine segment was made with a scalpel and extended laterally with blunt dissection. Clear amniotic fluid. wedged deep within the pelvis, elevated through the surgical incision and delivered with mild fundal pressure without difficulty. No nuchal cord was present. Umbilical cord was clamped after delay and samples for blood were obtained. Infant was handed off to the NICU attending. The placenta was elevated manually and intact. The uterus was exteriorized through the surgical incision and the intrauterine cavity was cleared of all clots and debris. The lower uterine segment incision was reapproximated with 1-0 Polysorb running locked suture. Excellent structural reapproximation with 1 layer suture. A [id number] in the right incisional corner was required to minimize oozing. The uterus was internalized to the pelvis cavity and gutters were cleared of all clots and debris. Secondary inspection of the surgical field revealed excellent hemostasis including bladder dome and rectus muscle fascial interface and the rectus muscles were manually reapproximated and the fascia was reapproximated with 0 Polysorb running nonlocked suture. Excellent structural reapproximation achieved and confirmed by digital palpation by the surgeon. Subcutaneous tissues were copiously irrigated and bleeders neutralized with Bovie cautery. Skin incision was reapproximated with 3-0 Biosyn subcuticular sutures. Patient in stable condition to the recovery room. Instrument count was reported as correct x2 by the staff. MARK VIDAL MD [id number] MTDD
--- NOTE | 2019-11-21 08:35 | DS ---
Physical Examination Vital Signs: Vital Signs Temperature 97.7 F 11/20/19 22:00 Pulse Rate 103 H 11/20/19 22:00 Respiratory Rate 18 11/20/19 22:00 Blood Pressure 122/72 11/20/19 22:00 O2 Sat by Pulse Oximetry (%) 100 11/20/19 22:00 Constitutional: Yes: Well Nourished, No Distress, Calm Eyes: Yes: WNL, Conjunctiva Clear, EOM Intact HENT: Yes: WNL, Atraumatic, Normocephalic Neck: Yes: WNL, Supple, Trachea Midline Cardiovascular: Yes: WNL, Regular Rate and Rhythm Respiratory: Yes: WNL, Regular, CTA Bilaterally Gastrointestinal: Yes: WNL, Normal Bowel Sounds Musculoskeletal: Yes: WNL Extremities: Yes: WNL Edema: No Integumentary: Yes: WNL Neurological: Yes: WNL, Alert, Oriented ...Motor Strength: WNL Psychiatric: Yes: WNL Labs: CBC, BMP 11/20/19 09:08 11/18/19 03:30 Discharge Summary Problems reviewed: Yes Reason For Visit: LABOR ADMIT Procedures: Principal: Primary Hospital Course: Patient presented in labor She had arrest of the first stage of labor and underwent a primary She met all postoperative milestones She was discharged home in stable condition on POD#3 Karyn Mohr MD Condition: Stable - Instructions Diet, Activity, Other Instructions: return to regular diet as tolerated. Avoid strenuous activity until cleared by MD. Take medications as prescribed. Follow up within 1 week from discharge at [facility] for incision check Referrals: Prashant Gould MD [Staff Physician] - Bernardo Montesinos MD [Staff Physician] - Disposition: HOME - Home Medications Comprehensive Discharge Medication List: Ambulatory Orders Acetaminophen [Tylenol] 650 mg PO Q6H PRN #30 capsule MDD 5 11/18/19 Ibuprofen 600 mg PO Q6H PRN #30 tablet 11/18/19 Miscellaneous Medical Supply [Breast Pump, Electronic] 1 each NR ASDIR #1 unit 11/18/19 Mv-Mn/Iron/FA/Herbal/Digestive [ One Tablet] 1 tab PO DAILY 11/18/19 Oxycodone HCl [Roxicodone] 5 mg PO Q6H PRN 3 Days #12 tablet MDD 5 11/18/19 Valacyclovir HCl [Valtrex] 500 mg PO BID 11/18/19 Ferrous Sulfate [Feosol] 325 mg PO DAILY #30 tablet 11/19/19
[2019-11-21] MEDS: FERROUS SO4 325 MG TABLET (FP) PO SCH (09:58)
[2019-11-21 10:49] VITALS: BP 122/68; PULSE 87; TEMP 99.5
--- NOTE | 2019-11-24 17:22 | PATH ---
Surgical Pathology Report Patient Name: REAGAN POLANCO Med. Rec. 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 TRIVASCULAR CORD. MEMBRANES WITH NO DIAGNOSTIC ABNORMALITIES. Electronically Signed Kenneth Cai M.D. Gross Description The specimen is received fresh labeled placenta and is a 517 gram, 16.5 x 15.0 x 3.4 cm. placenta with attached membranes and umbilical cord. The attached membranes are zhong, translucent with focal opacities and insert marginally. The umbilical cord measures 28 cm. in length and averages 1.1 cm. in diameter. The cord inserts centrally. No true knots or strictures are identified. Cut surface of the umbilical cord reveals 3 vessels. The surface is dela cruz-blue with minimal fibrin deposition and appropriate caliber vessels. The maternal surface is red-brown with focal defects. Sectioning reveals red-brown, spongy parenchyma. No lesions are identified. Veneer Sheet Repairer sections are submitted in three cassettes as follows: 1- membrane rolls and umbilical cord; 2-3- full thickness sections of placenta. 11/23/2019 saudi/11/23/2019
== END 2019-11-21 13:45 | disposition home or self-care (01) | DRG 787 ==
LOC: JDEL 00:15 → JLDR 02:45 → J3W 20:50
PROVIDERS: ADMIT Student in an Organized Health Care Education/Training Program; ATTEND Student in an Organized Health Care Education/Training Program
PROC: 10D00Z1 Extraction of Products of Conception, Low, Open Approach (ICD-10-PCS; principal; 2019-11-18)
PROC: 10907ZC Drainage of Amniotic Fluid, Therapeutic from Products of Conception, Via Natural or Artificial Opening (ICD-10-PCS; 2019-11-18)
DX: O82 Encounter for cesarean delivery without indication (principal); O98.53 Other viral diseases complicating the puerperium; O48.0 Post-term pregnancy; O62.1 Secondary uterine inertia; B00.9 Herpesviral infection, unspecified; O90.81 Anemia of the puerperium; D64.9 Anemia, unspecified; Z3A.40 40 weeks gestation of pregnancy; Z37.0 Single live birth
CPT/HCPCS: 36415; 59025; 80048; 85025; 85610; 85730; 86850; 86900; 86901; 88307-TC; 90715; J0131; U0003